=== PATIENT | female | born 1975 | race Caucasian/White ===

== ENCOUNTER → 2018-04-19 17:12 | Outpatient (CLI) | payer OTHER, SELFPAY | PROVIDERS: Family Provider Family Medicine; PCP Family Medicine; Visit Provider Family Medicine | DX: R50.9 Fever, unspecified (principal) | CPT/HCPCS: 36415; 87040 ==

== ENCOUNTER 2018-06-04 18:14 | Emergency (ER) | payer OTHER, SELFPAY ==
[2018-06-04 18:22] VITALS: BP 161/121; PULSE 126; RESP 20; TEMP 37.2; O2SAT 99
--- NOTE | 2018-06-04 18:24 | ED.FALL ---
HPI - Fall <Helga Moody PA-C - Last Filed: 06/04/18 21:36> General Chief Complaint: Head Injury Stated Complaint: CRACKED HEAD Time Seen by Provider: 06/04/18 18:22 Source: patient Mode of arrival: ambulatory Limitations: no limitations History of Present Illness HPI Narrative: this 43-year-old female was up on a step ladder, 4-5 feet, decorating when she slipped and fell backwards off of it. She states for she landed on her left gluteal area, and hit the back of her head on a plantar. She states that she did not lose consciousness, knew what had happened. She states that she was able to get up right away and then realized the back of her scalp was bleeding. She states that she also had some pain in her neck so came here for evaluation. She states most pain is in her left gluteal area. She states that she has been walking and moving normally including her neck. She denies any weakness or paresthesia in the extremities. She denies any difficulty urinating or groin numbness. Related Data Home Medications Medication Instructions Recorded Confirmed citalopram 40 mg PO QDAY #30 tab 03/21/16 05/12/18 venlafaxine ER 37.5 mg 37.5 mg PO DAILY 05/12/18 05/12/18 capsule,extended release 24 hr Previous Rx's Medication Instructions Recorded hydrocodone-acetaminophen [Reeders] 1 tab PO Q6HP PRN #10 tab 03/21/16 cyclobenzaprine 10 mg PO Q8H PRN #10 tab 06/04/18 hydrocodone-acetaminophen 2 tab PO Q6-8H PRN #10 tab 06/04/18 ibuprofen 800 mg PO Q8H PRN #20 tab 06/04/18 Allergies Allergy/AdvReac Type Severity Reaction Status Date / Time INTOLERANT TO STERIODS. AdvReac Unknown Uncoded 05/12/18 15:56 Review of Systems <Helga Moody PA-C - Last Filed: 06/04/18 21:36> Review of Systems All systems reviewed & are unremarkable except as noted in HPI and below Exam <Helga Moody PA-C - Last Filed: 06/04/18 21:36> Narrative Exam Narrative: GENERAL APPEARANCE: Patient sitting comfortably, in no distress. HEENT: PERRL, EOMI, normal TMs and oropharynx NECK: Supple LUNGS: Clear to auscultation bilaterally. HEART: Rate and rhythm regular without murmur, normal S1 and S2, no S3 or S4. NEUROLOGIC: Alert and oriented, normal speech, and coordination. MUSCULOSKELETAL: tender over the mid to upper C-spine . no point tenderness over the thoracolumbar spine or sacrum. No point tenderness over the left anterior or lateral hip. She is tender over the left posterior hip and mid gluteals. After C collar removal she has full AROM of the Csp. Tender with position changes but gait is normal. DERMATOLOGIC: scabbed 2.8 cm laceration left posterior mid scalp. None visible elsewhere. She has a tender hematoma L. inferior occiput. There is a tender hematoma in the left mid inferior buttock without any visible eccymoses or abrasion Initial Vital Signs Initial Vital Signs: Vital Signs Temperature 98.9 F 06/04/18 18:22 Pulse Rate 126 H 06/04/18 18:22 Respiratory Rate 20 06/04/18 18:22 Blood Pressure 161/121 H 06/04/18 18:22 Pulse Oximetry 99 06/04/18 18:22 <Filemon Vigil DO - Last Filed: 06/05/18 00:57> Initial Vital Signs Initial Vital Signs: Vital Signs Temperature 98.9 F 06/04/18 18:22 Pulse Rate 126 H 06/04/18 18:22 Respiratory Rate 20 06/04/18 18:22 Blood Pressure 161/121 H 06/04/18 18:22 Pulse Oximetry 99 06/04/18 18:22 Procedures <JOEL Sanchez Last Filed: 06/04/18 21:36> Laceration Repair Laceration 1: Site: scalp Size (cm): 2.8 Description: linear Depth: simple, single layer Pre-repair: wound explored Size (cm): other (closed with 4 ashanti) Course <JOEL Sanchez Last Filed: 06/04/18 21:36> Orders Ordered: ED Orders 06/04/18 18:38 CT cervical spine wo con Stat CT head/brain wo con Stat XR hip w pel if done LT 2V Stat Discontinued Medications Hydrocodone Bitart/Acetaminophen (Reeders 5/325) 1 tab PO NOW ONE Stop: 06/04/18 19:05 Hydrocodone Bitart/Acetaminophen (Vicodin Prepack) 1 bottle MISC SEEINSTR ONE Stop: 06/04/18 19:54 Last Admin: 06/04/18 20:13 Dose: 1 bottle Cyclobenzaprine HCl (Flexeril 10 Mg Prepack) 1 bottle MISC SEEINSTR ONE Stop: 06/04/18 19:54 Last Admin: 06/04/18 20:13 Dose: 1 bottle Ibuprofen (Advil) 800 mg PO NOW ONE Stop: 06/04/18 19:21 Last Admin: 06/04/18 19:24 Dose: 800 mg Vital Signs - 8 hr 06/04/18 18:22 06/04/18 20:25 Temperature 98.9 F Pulse Rate 126 H 110 H Respiratory Rate 20 18 Blood Pressure 161/121 H 166/111 H Pulse Oximetry 99 95 <Filemon Vigil DO - Last Filed: 06/05/18 00:57> Orders Ordered: ED Orders 06/04/18 18:38 CT cervical spine wo con Stat CT head/brain wo con Stat XR hip w pel if done LT 2V Stat Discontinued Medications Hydrocodone Bitart/Acetaminophen (Reeders 5/325) 1 tab PO NOW ONE Stop: 06/04/18 19:05 Hydrocodone Bitart/Acetaminophen (Vicodin Prepack) 1 bottle MISC SEEINSTR ONE Stop: 06/04/18 19:54 Last Admin: 06/04/18 20:13 Dose: 1 bottle Cyclobenzaprine HCl (Flexeril 10 Mg Prepack) 1 bottle MISC SEEINSTR ONE Stop: 06/04/18 19:54 Last Admin: 06/04/18 20:13 Dose: 1 bottle Ibuprofen (Advil) 800 mg PO NOW ONE Stop: 06/04/18 19:21 Last Admin: 06/04/18 19:24 Dose: 800 mg Vital Signs - 8 hr 06/04/18 18:22 06/04/18 20:25 Temperature 98.9 F Pulse Rate 126 H 110 H Respiratory Rate 20 18 Blood Pressure 161/121 H 166/111 H Pulse Oximetry 99 95 MDM - Fall <Helga Moody PA-C - Last Filed: 06/04/18 21:36> Imaging Data CT scan - head: Radiologist's impression: [address] [address] [address] Scan Report Signed Patient: Tootie Elmore [facility]#: [id number] : 1975Acct:[id number] Age/Sex: 43 / FDate of Service: 06/04/18 Loc: ED Accession Number: [id number] Procedure: CT head/brain wo con Ordering Provider: Helga Moody P.A-C PROCEDURE: CT HEAD/BRAIN WO CON INDICATIONS: fall, head contusion TECHNIQUE: Noncontrast 4.5 mm thick angled axial sections acquired from the foramen magnum to the vertex, with coronal and sagittal reformats. For radiation dose reduction, the following was used: automated exposure control, adjustment of mA and/or kV according to patient size. COMPARISON: None. FINDINGS: Image quality: Excellent. CSF spaces: Basal cisterns are patent. No extra-axial fluid collections. Ventricles are normal in size and shape. Brain: No midline shift. No intracranial masses or hemorrhage. Ospina-white matter interface is normal. Skull and face: Calvarium and visualized facial bones are intact, without suspicious lesions. 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 Sinuses: Visualized sinuses and mastoids are clear. IMPRESSION: No acute intracranial disease process. Dictated by: Dory Jerez MD, PhD on 06/04/2018 at 19:12 Approved by: Dory Jerez MD, PhD on 06/04/2018 at 19:14 hip: Radiologist's impression: [address] [address] XRay Report Signed Patient: Tootie Elmore [facility]#: [id number] : 1975Acct:[id number] Age/Sex: 43 / FDate of Service: 06/04/18 Loc: ED Accession Number: [id number] Procedure: XR hip w pel if done LT 2V Ordering Provider: Helga Moody P.A-C PROCEDURE: XR HIP W PEL IF DONE LT 2V INDICATIONS: fall, L posterior hip,gluteal pain TECHNIQUE: AP pelvis with lateral view(s) of the left hip(s). COMPARISON: None. FINDINGS: Bones: No fractures or dislocations. Pelvic ring appears intact. No suspicious bony lesions. Soft tissues: The visualized bowel gas pattern is normal. No suspicious soft tissue calcifications. IMPRESSION: No fracture. No osseous lesion. If there are persistent symptoms or clinical suspicion for pathology, then repeat radiographs or advanced imaging (CT, MRI or bone scan) should be considered for further evaluation. Dictated by: Dory Jerez MD, PhD on 06/04/2018 at 19:15 Approved by: Dory Jerez MD, PhD on 06/04/2018 at 19:16 cspine: Radiologist's impression: [address] [address] [address] Scan Report Signed Patient: Tootie Elmore [facility]#: [id number] : 1975Acct:[id number] Age/Sex: 43 / FDate of Service: 06/04/18 Loc: ED Accession Number: [id number] Procedure: CT cervical spine wo con Ordering Provider: Helga Moody P.A-C PROCEDURE: CT CERVICAL SPINE WO CON INDICATIONS: fall, mid to sup Csp pain TECHNIQUE: Noncontrast 3 mm thick sections acquired from the skull base to the T4 level. Sagittal and coronal reformats were then constructed. For radiation dose reduction, the following was used: automated exposure control, adjustment of mA and/or kV according to patient size. COMPARISON: None. FINDINGS: Image quality: Excellent. Bones: No fractures or dislocations. Visualized superior ribs are intact. C5-C6 and C6-C7 degenerative changes are noted. C3-C4, C4-C5, C5-C6 and C7-T1 facet arthropathy. 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 Soft tissues: Prevertebral soft tissues are normal in thickness. No paravertebral hematomas. No apical pneumothoraces. IMPRESSION: No fracture. No acute osseous lesion. If there are persistent symptoms or continued clinical suspicion for pathology, then MRI should be considered for further evaluation. Dictated by: Dory Jerez MD, PhD on 06/04/2018 at 19:16 Approved by: Dory Jerez MD, PhD on 06/04/2018 at 19:21 Discharge Plan Departure Patient Disposition: Home Clinical Impression: Contusion of scalp, Laceration of scalp, Hematoma Discharge Date/Time: 06/04/18 20:25 Interventions: ED Discharge Assessment Last Done: 06/04/18 20:25 Instructions: DI for Laceration Repair -- [place] Activity Restrictions/Additional Instructions: Please return as we talked about if you have acutely worsening symptoms such as severe headache, or new symptoms such as vision change or vomiting. You are going to have tight, sore muscles, and you have an under the skin bruise on your left buttock area as well as the one on your scalp. Please continue Ibuprofen 800mg every 8 hr to help with pain and inflammation, take with food. You can add the hydrocodone/ acetaminophen and cyclobenzaprine as needed for pain and muscle tightness since you have taken these in the past. Remember that they can make you sleepy, and not to drive. Call your PCP 1st thing on Wednesday to set up a follow-up, let them know that you were seen in the emergency room. The ashanti should be ready to come out by or Wednesday Prescriptions: New cyclobenzaprine 10 mg tablet 10 mg PO Q8H PRN (Reason: muscle spasm/tightness) Qty: 10 RF: 0 ibuprofen 800 mg tablet 800 mg PO Q8H PRN (Reason: pain) Qty: 20 RF: 0 hydrocodone-acetaminophen 5-325 mg tablet 2 tab PO Q6-8H PRN (Reason: acute pain/injury) Qty: 10 RF: 0 No Action citalopram 40 MG tablet 40 mg PO QDAY Qty: 30 RF: 0 hydrocodone-acetaminophen [Reeders] 5 MG/325 MG tablet 1 tab PO Q6HP PRNQty: 10 RF: 0 venlafaxine [Effexor XR] 37.5 mg capsule,extended release 24hr 37.5 mg PO DAILY RF: 0 Referrals: Avni Call MD [Primary Care Provider] - <Filemon Vigil DO - Last Filed: 06/05/18 00:57> [facility] ED Attending Todd Attestation: I was immediately available in the department for consultation. Documentation has been reviewed. I agree with assessment and plan.
--- NOTE | 2018-06-04 18:38 | DI.CT.S_ITS ---
PROCEDURE: CT CERVICAL SPINE WO CON INDICATIONS: fall, mid to sup Csp pain TECHNIQUE: Noncontrast 3 mm thick sections acquired from the skull base to the T4 level. Sagittal and coronal reformats were then constructed. For radiation dose reduction, the following was used: automated exposure control, adjustment of mA and/or kV according to patient size. COMPARISON: None. FINDINGS: Image quality: Excellent. Bones: No fractures or dislocations. Visualized superior ribs are intact. C5-C6 and C6-C7 degenerative changes are noted. C3-C4, C4-C5, C5-C6 and C7-T1 facet arthropathy. 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 Soft tissues: Prevertebral soft tissues are normal in thickness. No paravertebral hematomas. No apical pneumothoraces. IMPRESSION: No fracture. No acute osseous lesion. If there are persistent symptoms or continued clinical suspicion for pathology, then MRI should be considered for further evaluation. Dictated by: Dory Jerez MD, PhD on 06/04/2018 at 19:16 Approved by: Dory Jerez MD, PhD on 06/04/2018 at 19:21
--- NOTE | 2018-06-04 18:38 | DI.CT.S_ITS ---
PROCEDURE: CT HEAD/BRAIN WO CON INDICATIONS: fall, head contusion TECHNIQUE: Noncontrast 4.5 mm thick angled axial sections acquired from the foramen magnum to the vertex, with coronal and sagittal reformats. For radiation dose reduction, the following was used: automated exposure control, adjustment of mA and/or kV according to patient size. COMPARISON: None. FINDINGS: Image quality: Excellent. CSF spaces: Basal cisterns are patent. No extra-axial fluid collections. Ventricles are normal in size and shape. Brain: No midline shift. No intracranial masses or hemorrhage. Ospina-white matter interface is normal. Skull and face: Calvarium and visualized facial bones are intact, without suspicious lesions. 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 Sinuses: Visualized sinuses and mastoids are clear. IMPRESSION: No acute intracranial disease process. Dictated by: Dory Jerez MD, PhD on 06/04/2018 at 19:12 Approved by: Dory Jerez MD, PhD on 06/04/2018 at 19:14
--- NOTE | 2018-06-04 18:38 | DI.RAD.S_ITS ---
PROCEDURE: XR HIP W PEL IF DONE LT 2V INDICATIONS: fall, L posterior hip,gluteal pain TECHNIQUE: AP pelvis with lateral view(s) of the left hip(s). COMPARISON: None. FINDINGS: Bones: No fractures or dislocations. Pelvic ring appears intact. No suspicious bony lesions. Soft tissues: The visualized bowel gas pattern is normal. No suspicious soft tissue calcifications. IMPRESSION: No fracture. No osseous lesion. If there are persistent symptoms or clinical suspicion for pathology, then repeat radiographs or advanced imaging (CT, MRI or bone scan) should be considered for further evaluation. Dictated by: Dory Jerez MD, PhD on 06/04/2018 at 19:15 Approved by: Dory Jerez MD, PhD on 06/04/2018 at 19:16
--- NOTE | 2018-06-04 18:54 | ED_ITS ---
HPI - Fall <Helga Moody PA-C - Last Filed: 06/04/18 21:36> General Chief Complaint: Head Injury Stated Complaint: CRACKED HEAD Time Seen by Provider: 06/04/18 18:22 Source: patient Mode of arrival: ambulatory Limitations: no limitations History of Present Illness HPI Narrative: this 43-year-old female was up on a step ladder, 4-5 feet, decorating when she slipped and fell backwards off of it. She states for she landed on her left gluteal area, and hit the back of her head on a plantar. She states that she did not lose consciousness, knew what had happened. She states that she was able to get up right away and then realized the back of her scalp was bleeding. She states that she also had some pain in her neck so came here for evaluation. She states most pain is in her left gluteal area. She states that she has been walking and moving normally including her neck. She denies any weakness or paresthesia in the extremities. She denies any difficulty urinating or groin numbness. Related Data Home Medications Medication Instructions Recorded Confirmed citalopram 40 mg PO QDAY #30 tab 03/21/16 05/12/18 venlafaxine ER 37.5 mg 37.5 mg PO DAILY 05/12/18 05/12/18 capsule,extended release 24 hr Previous Rx's Medication Instructions Recorded hydrocodone-acetaminophen [[place]] 1 tab PO Q6HP PRN #10 tab 03/21/16 cyclobenzaprine 10 mg PO Q8H PRN #10 tab 06/04/18 hydrocodone-acetaminophen 2 tab PO Q6-8H PRN #10 tab 06/04/18 ibuprofen 800 mg PO Q8H PRN #20 tab 06/04/18 Allergies Allergy/AdvReac Type Severity Reaction Status Date / Time INTOLERANT TO STERIODS. AdvReac Unknown Uncoded 05/12/18 15:56 Review of Systems <Helga Moody PA-C - Last Filed: 06/04/18 21:36> Review of Systems All systems reviewed & are unremarkable except as noted in HPI and below Exam <Helga Moody PA-C - Last Filed: 06/04/18 21:36> Narrative Exam Narrative: GENERAL APPEARANCE: Patient sitting comfortably, in no distress. HEENT: PERRL, EOMI, normal TMs and oropharynx NECK: Supple LUNGS: Clear to auscultation bilaterally. HEART: Rate and rhythm regular without murmur, normal S1 and S2, no S3 or S4. NEUROLOGIC: Alert and oriented, normal speech, and coordination. MUSCULOSKELETAL: tender over the mid to upper C-spine . no point tenderness over the thoracolumbar spine or sacrum. No point tenderness over the left anterior or lateral hip. She is tender over the left posterior hip and mid gluteals. After C collar removal she has full AROM of the Csp. Tender with position changes but gait is normal. DERMATOLOGIC: scabbed 2.8 cm laceration left posterior mid scalp. None visible elsewhere. She has a tender hematoma L. inferior occiput. There is a tender hematoma in the left mid inferior buttock without any visible eccymoses or abrasion Initial Vital Signs Initial Vital Signs: Vital Signs Temperature 98.9 F 06/04/18 18:22 Pulse Rate 126 H 06/04/18 18:22 Respiratory Rate 20 06/04/18 18:22 Blood Pressure 161/121 H 06/04/18 18:22 Pulse Oximetry 99 06/04/18 18:22 <Filemon Vigil DO - Last Filed: 06/05/18 00:57> Initial Vital Signs Initial Vital Signs: Vital Signs Temperature 98.9 F 06/04/18 18:22 Pulse Rate 126 H 06/04/18 18:22 Respiratory Rate 20 06/04/18 18:22 Blood Pressure 161/121 H 06/04/18 18:22 Pulse Oximetry 99 06/04/18 18:22 Procedures <JOEL Sanchez Last Filed: 06/04/18 21:36> Laceration Repair Laceration 1: Site: scalp Size (cm): 2.8 Description: linear Depth: simple, single layer Pre-repair: wound explored Size (cm): other (closed with 4 kenneth) Course <JOEL Sanchez Last Filed: 06/04/18 21:36> Orders Ordered: ED Orders 06/04/18 18:38 CT cervical spine wo con Stat CT head/brain wo con Stat XR hip w pel if done LT 2V Stat Discontinued Medications Hydrocodone Bitart/Acetaminophen ([place] 5/325) 1 tab PO NOW ONE Stop: 06/04/18 19:05 Hydrocodone Bitart/Acetaminophen (Vicodin Prepack) 1 bottle MISC SEEINSTR ONE Stop: 06/04/18 19:54 Last Admin: 06/04/18 20:13 Dose: 1 bottle Cyclobenzaprine HCl (Flexeril 10 Mg Prepack) 1 bottle MISC SEEINSTR ONE Stop: 06/04/18 19:54 Last Admin: 06/04/18 20:13 Dose: 1 bottle Ibuprofen (Advil) 800 mg PO NOW ONE Stop: 06/04/18 19:21 Last Admin: 06/04/18 19:24 Dose: 800 mg Vital Signs - 8 hr 06/04/18 18:22 06/04/18 20:25 Temperature 98.9 F Pulse Rate 126 H 110 H Respiratory Rate 20 18 Blood Pressure 161/121 H 166/111 H Pulse Oximetry 99 95 <Filemon Vigil DO - Last Filed: 06/05/18 00:57> Orders Ordered: ED Orders 06/04/18 18:38 CT cervical spine wo con Stat CT head/brain wo con Stat XR hip w pel if done LT 2V Stat Discontinued Medications Hydrocodone Bitart/Acetaminophen ([place] 5/325) 1 tab PO NOW ONE Stop: 06/04/18 19:05 Hydrocodone Bitart/Acetaminophen (Vicodin Prepack) 1 bottle MISC SEEINSTR ONE Stop: 06/04/18 19:54 Last Admin: 06/04/18 20:13 Dose: 1 bottle Cyclobenzaprine HCl (Flexeril 10 Mg Prepack) 1 bottle MISC SEEINSTR ONE Stop: 06/04/18 19:54 Last Admin: 06/04/18 20:13 Dose: 1 bottle Ibuprofen (Advil) 800 mg PO NOW ONE Stop: 06/04/18 19:21 Last Admin: 06/04/18 19:24 Dose: 800 mg Vital Signs - 8 hr 06/04/18 18:22 06/04/18 20:25 Temperature 98.9 F Pulse Rate 126 H 110 H Respiratory Rate 20 18 Blood Pressure 161/121 H 166/111 H Pulse Oximetry 99 95 MDM - Fall <Helga Moody PA-C - Last Filed: 06/04/18 21:36> Imaging Data CT scan - head: Radiologist's impression: [address] [address] [address] Scan Report Signed Patient: Tootie Elmore [facility]#: [id number] : 1975Acct:[id number] Age/Sex: 43 / FDate of Service: 06/04/18 Loc: ED Accession Number: [id number] Procedure: CT head/brain wo con Ordering Provider: Helga Moody P.A-C PROCEDURE: CT HEAD/BRAIN WO CON INDICATIONS: fall, head contusion TECHNIQUE: Noncontrast 4.5 mm thick angled axial sections acquired from the foramen magnum to the vertex, with coronal and sagittal reformats. For radiation dose reduction, the following was used: automated exposure control, adjustment of mA and/or kV according to patient size. COMPARISON: None. FINDINGS: Image quality: Excellent. CSF spaces: Basal cisterns are patent. No extra-axial fluid collections. Ventricles are normal in size and shape. Brain: No midline shift. No intracranial masses or hemorrhage. Ospina-white matter interface is normal. Skull and face: Calvarium and visualized facial bones are intact, without suspicious lesions. 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 Sinuses: Visualized sinuses and mastoids are clear. IMPRESSION: No acute intracranial disease process. Dictated by: Dory Jerez MD, PhD on 06/04/2018 at 19:12 Approved by: Dory Jerez MD, PhD on 06/04/2018 at 19:14 hip: Radiologist's impression: [address] [address] XRay Report Signed Patient: Tootie Elmore [facility]#: [id number] : 1975Acct:[id number] Age/Sex: 43 / FDate of Service: 06/04/18 Loc: ED Accession Number: [id number] Procedure: XR hip w pel if done LT 2V Ordering Provider: Helga Moody P.A-C PROCEDURE: XR HIP W PEL IF DONE LT 2V INDICATIONS: fall, L posterior hip,gluteal pain TECHNIQUE: AP pelvis with lateral view(s) of the left hip(s). COMPARISON: None. FINDINGS: Bones: No fractures or dislocations. Pelvic ring appears intact. No suspicious bony lesions. Soft tissues: The visualized bowel gas pattern is normal. No suspicious soft tissue calcifications. IMPRESSION: No fracture. No osseous lesion. If there are persistent symptoms or clinical suspicion for pathology, then repeat radiographs or advanced imaging (CT, MRI or bone scan) should be considered for further evaluation. Dictated by: Dory Jerez MD, PhD on 06/04/2018 at 19:15 Approved by: Dory Jerez MD, PhD on 06/04/2018 at 19:16 cspine: Radiologist's impression: [address] [address] [address] Scan Report Signed Patient: Tootie Elmore MMR#: [id number] : 1975Acct:[id number] Age/Sex: 43 / FDate of Service: 06/04/18 Loc: ED Accession Number: [id number] Procedure: CT cervical spine wo con Ordering Provider: Helga Moody P.A-C PROCEDURE: CT CERVICAL SPINE WO CON INDICATIONS: fall, mid to sup Csp pain TECHNIQUE: Noncontrast 3 mm thick sections acquired from the skull base to the T4 level. Sagittal and coronal reformats were then constructed. For radiation dose reduction, the following was used: automated exposure control, adjustment of mA and/or kV according to patient size. COMPARISON: None. FINDINGS: Image quality: Excellent. Bones: No fractures or dislocations. Visualized superior ribs are intact. C5- C6 and C6-C7 degenerative changes are noted. C3-C4, C4-C5, C5-C6 and C7-T1 facet arthropathy. 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 Soft tissues: Prevertebral soft tissues are normal in thickness. No paravertebral hematomas. No apical pneumothoraces. IMPRESSION: No fracture. No acute osseous lesion. If there are persistent symptoms or continued clinical suspicion for pathology, then MRI should be considered for further evaluation. Dictated by: Dory Jerez MD, PhD on 06/04/2018 at 19:16 Approved by: Dory Jerez MD, PhD on 06/04/2018 at 19:21 Discharge Plan Departure Patient Disposition: Home Clinical Impression: Contusion of scalp, Laceration of scalp, Hematoma Discharge Date/Time: 06/04/18 20:25 Interventions: ED Discharge Assessment Last Done: 06/04/18 20:25 Instructions: DI for Laceration Repair -- Kenneth Activity Restrictions/Additional Instructions: Please return as we talked about if you have acutely worsening symptoms such as severe headache, or new symptoms such as vision change or vomiting. You are going to have tight, sore muscles, and you have an under the skin bruise on your left buttock area as well as the one on your scalp. Please continue Ibuprofen 800mg every 8 hr to help with pain and inflammation, take with food. You can add the hydrocodone/ acetaminophen and cyclobenzaprine as needed for pain and muscle tightness since you have taken these in the past. Remember that they can make you sleepy, and not to drive. Call your PCP 1st thing on Wednesday to set up a follow-up, let them know that you were seen in the emergency room. The kenneth should be ready to come out by or Wednesday Prescriptions: New cyclobenzaprine 10 mg tablet 10 mg PO Q8H PRN (Reason: muscle spasm/tightness) Qty: 10 RF: 0 ibuprofen 800 mg tablet 800 mg PO Q8H PRN (Reason: pain) Qty: 20 RF: 0 hydrocodone-acetaminophen 5-325 mg tablet 2 tab PO Q6-8H PRN (Reason: acute pain/injury) Qty: 10 RF: 0 No Action citalopram 40 MG tablet 40 mg PO QDAY Qty: 30 RF: 0 hydrocodone-acetaminophen [[place]] 5 MG/325 MG tablet 1 tab PO Q6HP PRNQty: 10 RF: 0 venlafaxine [Effexor XR] 37.5 mg capsule,extended release 24hr 37.5 mg PO DAILY RF: 0 Referrals: Avni Call MD [Primary Care Provider] - <Filemon Vigil DO - Last Filed: 06/05/18 00:57> [facility] ED Attending Todd Attestation: I was immediately available in the department for consultation. Documentation has been reviewed. I agree with assessment and plan.
[2018-06-04] MEDS: IBUPROFEN 400 MG TABLET 800 MG PO (19:24)
--- NOTE | 2018-06-04 19:41 | PC.NURSE ---
TERESSA Partida in stapling pt's wound.
[2018-06-04] MEDS: CYCLOBENZAPRINE 10 MG PREPACK 1 BOTTLE MISC (20:13)
[2018-06-04] MEDS: HYDROCODONE/ACET 5/325 PREPACK 1 BOTTLE MISC (20:13)
[2018-06-04 20:25] VITALS: BP 166/111; PULSE 110; RESP 18; O2SAT 95
== END 2018-06-04 20:25 | disposition home or self-care (01) ==
PROVIDERS: Emergency Provider Internal Medicine; Family Provider Family Medicine; PCP Family Medicine
DX: S01.01XA Laceration without foreign body of scalp, initial encounter (principal); S30.0XXA Contusion of lower back and pelvis, initial encounter; W11.XXXA Fall on and from ladder, initial encounter
CPT/HCPCS: 70450; 72125; 73502; 99282; 99284

== ENCOUNTER 2018-07-01 10:39 | Day surgery (SDC) | payer OTHER, SELFPAY ==
[2018-06-30 08:15] VITALS: BMI 37.8
--- NOTE | 2018-07-01 | PATH_ITS ---
[facility] Accession Number: [id number] . 01 Material submitted: . ENDOMETRIAL CURETTINGS . 02 Diagnosis: Endometrial Curettings: Portions of shedding endometrium; negative for glandular hyperplasia, cytologic atypia, and malignancy. Endocervical tissue fragments; negative for glandular dysplasia and malignancy. MRV/07/04/2018 . 02 Electronically signed: . Meena Post MD, Pathologist NPI- [id number] . 01 Gross description: . Received in formalin, labeled with the patient's name and endometrial curettings are multiple red-brown irregularly shaped soft tissues aggregating to 2.0 x 0.5 x 0.3 cm. The tissues are filtered and are entirely submitted as A1. ([id number]) /MRV . 02 Pathologist provided ICD-10: N85.00 . 02 CPT . 374856 Performed at: 01 [facility] [address] [facility], [place], [place] [id number] MD Matt Ontiveros MD Phone: [phone] Performed at: 02 [facility] [address] [place], [place] [id number] MD Anu Trotter MD Phone: [phone]
[2018-07-01 10:57] VITALS: BP 149/98; PULSE 90; RESP 16; TEMP 36.6; O2SAT 97; BMI 36.1
[2018-07-01] MEDS: LACTATED RINGERS 1,000 ML 100 ML IV (11:12)
--- NOTE | 2018-07-01 12:04 | PM.PREOP ---
Pre-operative Note Interval Note Pre-op Check: Yes History & Physical exam performed today by Physician Changes: No
[2018-07-01 12:56] VITALS: BP 169/97; PULSE 90; RESP 16; TEMP 36.6; O2SAT 93
--- NOTE | 2018-07-01 12:59 | SUR.OPER ---
Lithotomy on padded OR bed, head on pillow, arms secured on padded arm boards at <90 degrees abduction. Legs secured in padded yellow fins stirrups.
[2018-07-01 13:00] VITALS: BP 146/94; PULSE 88; RESP 18; O2SAT 93
[2018-07-01 13:08] VITALS: BP 146/100; PULSE 80; RESP 14; O2SAT 95
[2018-07-01 13:10] VITALS: BP 146/97; PULSE 76; RESP 12; TEMP 36.7; O2SAT 95
[2018-07-01] MEDS: OXYCODONE/ACETAMINOPHEN 5/325 TABLET 1 TAB PO (13:12)
--- NOTE | 2018-07-01 15:41 | SUR.PHASEI ---
Awake quickly and quite interactionally engaging once awake. VSS and no shivering.
--- NOTE | 2018-07-02 17:15 | PM.HP.1 ---
History of Present Illness Date Patient Seen: 07/01/18 Time Patient Seen: 11:00 Chief complaint: d&c hysteroscopy novasure ablation [id number] Narrative: Patient is a 43-year-old 2 para 1012 who presents for a D&C hysteroscopy and NovaSure endometrial ablation secondary to menorrhagia and dysmenorrhea Patient History Medical History Menorrhagia (Acute) Depression with anxiety (Chronic) Reactive airways dysfunction syndrome (Chronic) Uterus, adenomyosis (Chronic) Surgical History History of elective (Resolved) History of third molar tooth extraction (Resolved) Family & Social History Social History: household members spouse,family Tobacco & Substance use: Smoking Status Current every day smoker alcohol intake frequency other Substance Use Type does not use Meds Home Medications Medication Instructions Recorded Confirmed Type citalopram 40 mg PO QDAY #30 tab 03/21/16 07/01/18 History meloxicam 15 mg PO DAILY 07/01/18 07/01/18 History oxycodone-acetaminophen [Percocet] 1 tab PO Q4-6H PRN #14 tab 07/01/18 Rx venlafaxine 75 mg PO DAILY 07/01/18 07/01/18 History Allergies Allergy/AdvReac Type Severity Reaction Status Date / Time INTOLERANT TO STERIODS. AdvReac Unknown rage Uncoded 07/01/18 10:56 Exam Vital Signs (past 8 hours): Oxygen Delivery Method Room Air Narrative Exam Narrative: HEENT: No thyromegaly, no anterior cervical or supraclavicular lymphadenopathy. Lungs:Clear to auscultation bilaterally, no wheezes. Cardiovascular: Regular rate and rhythm, no murmurs, rubs, or gallops. Abdomen: No scars. No hepatosplenomegaly. No masses palpable. External genitalia: Normal Vagina: Normal Cervix: Normal] Bimanual exam: 8 Week size uterus. Mobile. Rectal: [No masses]. Assessment & Plan (1) Premenopausal menorrhagia: Current visit: No Status: Acute (2) Severe dysmenorrhea: Current visit: No Status: Acute Plan: Assessment/Plan Narrative: Assessment: 43-year-old 2 para 1012 with menorrhagia and severe dysmenorrhea Plan: D&C hysteroscopy with NovaSure endometrial ablation The risks, benefits, and alternatives to the procedure were explained to the patient. The risks including bleeding, infection, and uterine perforation. She understands these risks and agrees to proceed. A full PAR-Q was held and consent form was signed
--- NOTE | 2018-07-02 17:19 | PM.GYNOP.1 ---
Operative Date/Time/Diagnoses Date of procedure: 07/01/18 Time of procedure: 11:45 Pre-op diagnosis: Menorrhagia Severe dysmenorrhea Post-op diagnosis: same Procedure: Procedures Operation Date: 07/01/18 11:30 Actual Procedures Side Surgeon p D&C Hysteroscopy w/Novasure Ablation Kayley Mason MD Indications: Menorrhagia Severe dysmenorrhea Surgeon: Kayley Mason Anesthesia Type: General (LMA) Operative Notes Findings: 8 week size anteverted uterus Thickened endometrial lining Length of the uterus 4.5 cm, with of the uterus 4.5 cm, power = 111 w, time = 76 sec Closure Type: not applicable Specimen(s): endometrial curettings Applied: catheter (In and out) Estimated blood loss (mL): 50 Blood products transfused: none Procedure in detail: After informed consent was obtained, the patient was taken to the operating room where she was placed in the dorsal supine position. After adequate LMA general anesthesia was achieved, she was placed in the dorsal lithotomy position, and prepped and draped in the usual sterile fashion. A bivalve speculum was placed into the vagina and the anterior lip of the cervix grasped with a single-tooth tenaculum. The cervical os was sequentially dilated until the hysteroscope could pass easily into the endometrial cavity. Initial inspection with the hysteroscope revealed both fallopian tube ostia, and a thickened endometrial lining throughout. The hysteroscope was removed from the uterus. Sharp curettage was performed yielding a large amount of endometrial curettings. The uterus was measured from the internal os to the fundus of the uterus and was 4.5 cm. This was set on the NovaSure catheter as well as a NovaSure generator. The NovaSure catheter passed easily into the endometrial cavity and was opened. The width of the uterus was 4.5 cm. This was set on the NovaSure generator. This indicated a power of 111 w. The cervix was capped, the cavity assessment was performed and passed, and the cycle was initiated. Cycle lasted 76 sec. At the completion of the cycle the cervix was on capped, the NovaSure catheter was closed, and the NovaSure catheter was removed from the uterus. The single-tooth tenaculum was removed from the anterior lip of the cervix. The bivalve speculum was removed from the vagina. Sponge, lap, and instrument counts were correct x2. The patient tolerated the procedure well, and was taken to PACU in stable condition. Complications: none Post-operative Condition: stable Disposition: PACU Plan for aftercare: Home after recovery
== END 2018-07-01 13:45 | disposition home or self-care (01) ==
PROVIDERS: Family Provider Family Medicine; PCP Family Medicine; Visit Provider Obstetrics & Gynecology
PROC: 0U5B8ZZ Destruction of Endometrium, Via Natural or Artificial Opening Endoscopic (ICD-10-PCS; CPT 58563; principal; 2018-07-01 11:30)
DX: N85.00 Endometrial hyperplasia, unspecified (principal); N94.6 Dysmenorrhea, unspecified; F17.210 Nicotine dependence, cigarettes, uncomplicated; F41.9 Anxiety disorder, unspecified; F33.41 Major depressive disorder, recurrent, in partial remission; J68.3 Other acute and subacute respiratory conditions due to chemicals, gases, fumes and vapors
CPT/HCPCS: 58563; J1885; J2250; J2405; J2704; J3010

== ENCOUNTER 2020-11-15 17:43 | Emergency (ER) | payer OTHER, SELFPAY ==
[2020-11-15] VITALS (16 sets, daily range): BP systolic 112–188; BP diastolic 73–109; PULSE 73–90; RESP 15–41; TEMP 35.9; O2SAT 96–99; BMI 35.5
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
[2020-11-15] MEDS: HYDROMORPHONE 1 MG INJ IM (18:20)
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
--- NOTE | 2020-11-15 19:27 | DI.RAD.S_ITS ---
PROCEDURE: XR SHOULDER LT MIN 2V INDICATIONS: post reduction TECHNIQUE: 3 views of the shoulder were acquired. COMPARISON: [facility], , XR SHOULDER LT MIN 2V, 11/15/2020, 18:13. FINDINGS: Bones: The patient is status post reduction of the previously seen anterior shoulder dislocation. A fracture of the greater tuberosity is reduced. There is mild widening of the acromioclavicular joint which was not appreciated on the prior x-ray. Soft tissues: No suspicious soft tissue calcifications. IMPRESSION: 1. Interval reduction of left anterior shoulder dislocation. 2. Fracture of the greater tuberosity appears well aligned. 3. Widening of the acromioclavicular joint. Dictated by: Kaleb Shen M.D. on 11/15/2020 at 20:12 Approved by: Kaleb Shen M.D. on 11/15/2020 at 20:14
[2020-11-15] MEDS: propofoL 200 MG/20 ML VIAL 100 MG IV (19:31)
[2020-11-15] MEDS: propofoL 200 MG/20 ML VIAL 20 MG IV (19:43)
[2020-11-15] MEDS: SODIUM CHLORIDE 0.9% 1,000 ML 125 ML IV (19:44)
[2020-11-15] MEDS: HYDROCODONE/ACET 5/325 TABLET 1 TAB PO (20:17)
[2020-11-15] MEDS: HYDROCODONE/ACET 5/325 PREPACK 1 BOTTLE MISC (20:44)
== END 2020-11-15 20:57 | disposition home or self-care (01) ==
PROVIDERS: Emergency Provider Emergency Medicine
DX: S43.005A Unspecified dislocation of left shoulder joint, initial encounter (principal); S42.252A Displaced fracture of greater tuberosity of left humerus, initial encounter for closed fracture; V29.9XXA Motorcycle rider (driver) (passenger) injured in unspecified traffic accident, initial encounter
CPT/HCPCS: 24505; 73030; 96360; 96372; 99152; 99284; 99285; J1170; J2704

== ENCOUNTER → 2023-01-07 12:12 | Outpatient (CLI) | payer BC, SELFPAY ==
--- NOTE | 2023-01-07 | DI.US.S_ITS ---
PROCEDURE: US PELVIC COMPLETE INDICATIONS: Amenorrhea, unspecified TECHNIQUE: Real-time scanning was performed of the pelvic organs, with image documentation. Additional endovaginal scanning was necessary due to incomplete visualization of the adnexal and endometrial structures by transabdominal scanning. COMPARISON: [facility], [place], PELVIC COMPLETE, 12/04/2015, 17:06. FINDINGS: Uterus: Uterus is anteverted and normal in size at 10.5 x 5.4 x 6.0 cm. The myometrium is heterogenous. The endometrium measures 6 mm combined thickness. Left anterior intramural fibroid measures 2.6 x 1.9 x 2.3 cm Ovaries: Right ovary is not visualized. Left ovary measures 4.3 by 2.4 x 4.7 cm consist with a calculated volume 25.7 cc. There is a simple left ovarian cysts measuring at 3.0 x 3.2 cm. Left ovary and is less than 12 follicles Other: No pathologic free abdominal or pelvic fluid. IMPRESSION: Myometrial fibroid. Nonvisualized right ovary. 3.2 cm left ovarian simple cyst Approved by: Micha Liu M.D. on 01/07/2023 at 19:08
== END ==
LOC: US 12:13
PROVIDERS: PCP Family Medicine; Referring Provider Family Medicine; Visit Provider Family Medicine
DX: D25.1 Intramural leiomyoma of uterus (principal); N91.2 Amenorrhea, unspecified; N83.292 Other ovarian cyst, left side
CPT/HCPCS: 76830; 76856

== ENCOUNTER → 2023-04-09 11:10 | Outpatient (CLI) | payer BC, SELFPAY ==
--- NOTE | 2023-04-09 | DI.CT.S_ITS ---
PROCEDURE: CT LUNG LOW DOSE SCREENING INDICATIONS: Nicotine dependence, TECHNIQUE: Noncontrast 2.0-2.5 mm thick sections acquired from the pulmonary apices to the posterior costophrenic angles. 7 mm thick axial MIP, and 5 mm coronal and sagittal reformats were then acquired. A low radiation dose technique was utilized. COMPARISON: None. FINDINGS: Image quality: Diagnostic, given the low radiation dose technique. Lungs and pleura: Moderate centrilobular emphysema. No suspicious nodules. Mediastinum: Heart size is normal. No pericardial effusion. No mediastinal adenopathy by size criteria. Thoracic aorta and central pulmonary arteries are normal in size. Esophagus is normal in caliber. No hiatal hernia. Bones and chest wall: No suspicious bony lesions. No vertebral body compression fractures. No axillary or supraclavicular adenopathy by size criteria. Thyroid gland is unremarkable. Moderate degenerative disc disease. Abdomen: Visualized upper abdomen solid organs and bowel loops appear normal in the absence of contrast. IMPRESSION: LUNG-RADS 1; continued annual follow-up if eligible. Dictated by: Nayan Otero M.D. on 04/09/2023 at 16:03 Approved by: Nayan Otero M.D. on 04/09/2023 at 16:05
== END ==
PROVIDERS: PCP Family Medicine; Referring Provider Family Medicine; Visit Provider Family Medicine
DX: Z12.2 Encounter for screening for malignant neoplasm of respiratory organs (principal); F17.200 Nicotine dependence, unspecified, uncomplicated; J43.2 Centrilobular emphysema
CPT/HCPCS: 71271

== ENCOUNTER 2023-06-25 08:44 | Day surgery (SDC) | payer BC, SELFPAY ==
--- NOTE | 2023-06-25 | PATH_ITS ---
[facility] Accession Number: [id number] No. of containers..02 Tissue . 01 Material submitted: . PART A: colon - ASCENDING COLON POLYP PART B: colon - CECAL MASS . 01 Diagnosis: A. Ascending Colon Polyp: Tubular adenoma. . B. Cecal Mass, Biopsies: Fragments of tubulovillous adenoma. No high-grade dysplasia or malignancy identified; please see comment. Additional step sections examined. MRV 07/08/2023 1449 Local . 01 Comment: B. The endoscopic impression of a cecal mass is noted. Sections from this biopsy are of multiple fragments of tubulovillous adenoma. No high-grade dysplasia or malignancy is identified in the sampled material. Correlation with clinical, endoscopic, and imaging findings to determine if this is inside sales account representative of the lesion, and assurance of complete removal of the lesion are recommended. . 01 Electronically signed: . Siva Beltrán MD, PhD, Pathologist NPI- [id number] . 01 Gross description: . Part A: ASCENDING COLON POLYP: Received in formalin is 1 fragment(s) of paula, soft tissue measuring 0.3 x 0.3 x 0.3 cm submitted entirely in 1 cassette(s) Part B: CECAL MASS: Received in formalin are multiple fragment(s) of paula, soft tissue measuring 0.1 x 0.1 x 0.1 cm to 1.0 x 0.8 x 0.6 cm submitted entirely in 1 cassette(s) /SAIRA 07/01/2023 1914 Local . 01 Pathologist provided ICD-10: D12.2, D12.0 . 01 CPT . 814513, [id number] Performed at: 01 [facility] [address] [place] [address], [place], [place] [id number] MD Matt Ontiveros MD Phone: [phone]
[2023-06-25 09:27] VITALS: BMI 40.3
[2023-06-25 09:38] VITALS: BP 107/70; PULSE 95; RESP 17; TEMP 37; O2SAT 96
[2023-06-25] MEDS: LACTATED RINGERS 1,000 ML 42 ML IV (09:41)
--- NOTE | 2023-06-25 10:55 | P.HP_ITS ---
History of Present Illness History of Present Illness Date Patient Seen: 06/25/23 Time Patient Seen: 10:55 Chief complaint: [facility] Narrative: First colonoscopy for colon cancer screening. No family history. [facility] Medical History (Updated 02/12/23 @ 16:00 by Emily Jones MD) Menorrhagia Depression with anxiety Uterus, adenomyosis Reactive airways dysfunction syndrome Surgical History Status post endometrial ablation (06/2018) S/P D&C (status post dilation and curettage) (07/01/18) History of third molar tooth extraction History of elective Social History household members: spouse and family Smoking Status: Current every day smoker Meds Home Medications and Allergies Home Medications Medication Instructions Recorded Confirmed Type albuterol sulfate 90 mcg/actuation 2 puff inhalation Q4-6H PRN 08/04/19 06/25/23 Rx aerosol inhaler (Ventolin HFA) shortness of breath or wheezing #8.5 grams inhalational spacing device #1 ea 08/04/19 02/12/23 Rx (BreatheRite MDI Spacer) fluoxetine 40 mg capsule 40 mg PO DAILY 02/12/23 06/25/23 History hydrochlorothiazide 25 mg tablet 25 mg PO BID 02/12/23 06/25/23 History lamotrigine 200 mg tablet 200 mg PO DAILY 02/12/23 06/25/23 History losartan 100 mg tablet 100 mg PO DAILY 02/12/23 06/25/23 History sodium,potassium,mag sulfates 17.5 See Rx Instructions PO .COMPLEX 04/14/23 Rx gram-3.13 gram-1.6 gram oral soln #354 mL (Suprep Bowel Prep Kit) trazodone 100 mg tablet 150 mg PO ONCE PM 06/25/23 06/25/23 History Allergies Allergy/AdvReac Type Severity Reaction Status Date / Time No Known Drug Allergies Allergy Verified 06/25/23 09:24 Review of Systems Review of Systems ROS: Yes All systems reviewed with the patient and are negative except as otherwise documented Exam Vital Signs (past 8 hours): - 06/25/23 09:38 Temperature 98.6 F Pulse Rate 95 H Respiratory Rate 17 Blood Pressure 107/70 Pulse Oximetry 96 Oxygen Delivery Method Room Air Oxygen Delivery Method Room Air Const General: cooperative and healthy appearing Nutritional Appearance: overweight HENMT Head: normocephalic and atraumatic Eyes General: appearance normal, both eyes and all related structures Sclera: sclerae normal Neck Neck: trachea midline Resp Effort & Inspection: normal respiratory effort and able to speak in complete sentences Cardio Rate: regular rate Rhythm: regular rhythm GI Palpation: soft and No tender Skin General: elasticity normal and turgor normal Neuro General: patient alert, patient awake and patient oriented x3 Cognition: normal cognition Psych Mental Status: mental status grossly normal Affect: normal affect Judgment: judgment good Assessment & Plan Assessment & Plan narrative: Colon cancer screening with colonoscopy and anesthesia Time Spent With Patient Time with patient: less than 30 minutes
--- NOTE | 2023-06-25 10:58 | PM.OP.COLON ---
Operative Date/Time/Diagnoses Date of procedure: 06/25/23 Time of procedure: 11:29 Pre-op diagnosis: Colon cancer screening Post-op diagnosis: same Procedure & Clinicians Study performed: Colonoscopy with hot snare biopsy, cold forceps polypectomy Same procedure as scheduled: Yes Indications: Colon cancer screening Surgeon: Bruna Holly Procedure Notes Procedure in detail: Preop diagnosis: Colon cancer screening Postop diagnosis: Same Operative procedure: Colonoscopy with cold forceps polypectomy and hot snare biopsy Anesthetic: Propofol Surgeon: Jeanine Holly MD Findings: Diverticulosis throughout the colon predominantly sigmoid. Cecal mass 12 mm by 15 mm. Small sessile polyp 3 mm in size in the ascending colon. Procedure: Patient placed in a lateral position. Rectal exam performed showing normal tone along with large hemorrhoidal tags. Scope was inserted into the rectum and advanced to ileocecal valve with minimal difficulty. Insufflation extraction scope and the above findings. Impression: Concerning cecal mass of which hot snare biopsies were performed, incomplete resection. Recommend right colectomy. Smaller sessile polyp in the ascending colon 3 mm in size, large hemorrhoidal tags, haas diverticulosis more concentrated in the sigmoid area. Plan: Repeat colonoscopy depending on pathology. We will send a Dr. Rodriguez for right colectomy Findings: divertiulosis, polyp(s) (Ascending colon polyp proximally 3 mm.) and possible cancer (Possible cancer flat in the cecum ) Specimen(s): other (Cecal) Complications: none Post-procedure Follow up: as needed Disposition: PACU
[2023-06-25 11:33] VITALS: BP 94/64; PULSE 69; RESP 16; TEMP 36.3; O2SAT 96
[2023-06-25 11:38] VITALS: BP 78/48; PULSE 69; RESP 12; O2SAT 95
[2023-06-25 11:43] VITALS: BP 93/60; PULSE 68; RESP 16; O2SAT 94
[2023-06-25 11:51] VITALS: BP 108/64; PULSE 68; RESP 14; TEMP 36.7; O2SAT 95
== END 2023-06-25 12:03 | disposition home or self-care (01) ==
PROVIDERS: PCP Family Medicine; Referring Provider Surgery; Visit Provider Surgery
PROC: 0DJD8ZZ Inspection of Lower Intestinal Tract, Via Natural or Artificial Opening Endoscopic (ICD-10-PCS; CPT 45378; principal; 2023-06-25 10:00)
DX: Z12.11 Encounter for screening for malignant neoplasm of colon (principal); K57.30 Diverticulosis of large intestine without perforation or abscess without bleeding; K64.4 Residual hemorrhoidal skin tags; D12.2 Benign neoplasm of ascending colon; D12.0 Benign neoplasm of cecum
CPT/HCPCS: 45385; 45380

== ENCOUNTER → 2023-07-12 10:00 | Outpatient (CLI) | payer BC, SELFPAY ==
[2023-07-12 11:21] LABS: Add Manual Diff / Slide Review NO; Basophils Absolute Auto 0 /uL (0-100); Basophils Percent Auto 0.4 % (0-2); Eosinophils Absolute Auto 100 /uL (0-450); Eosinophils Percent Auto 1.4 % (2-4); Hematocrit 38.1 % (36-46); Hemoglobin 13.2 g/dL (12.0-16.0); Lymphocytes Absolute Auto 1900 /uL (1100-4500); Lymphocytes Percent Auto 17.5 % (25-40); Mean Corpuscular HGB Conc 34.5 % (30-36); Mean Corpuscular Hemoglobin 31.2 PG (26-34); Mean Corpuscular Volume 90.4 fL (80-100); Monocytes Absolute Auto 500 /uL (0-900); Monocytes Percent Auto 4.8 % (3-14); Neutrophils Absolute Auto 8200 /uL (1500-7000); Neutrophils Percent Auto 75.9 % (50-75); Platelet Count 391 X10^3/uL (150-400); Red Blood Cell Count 4.22 X10^6/uL (4.0-5.2); Red Cell Distribution Width 14.2 % (11.6-14.8); White Blood Cell Count 10.8 X10^3/uL (4.5-11.0)
[2023-07-12 11:41] LABS: Alanine Aminotransferase 19 IU/L (<35); Albumin 4.3 g/dL (3.5-5.0); Albumin Globulin Ratio 1.4 (1.0-2.8); Alkaline Phosphatase 70 U/L (38-126); Aspartate Aminotransferase 20 IU/L (14-36); BUN Creatinine Ratio 14.5 (6-22); Bilirubin Total 0.5 mg/dL (0.2-1.3); Blood Urea Nitrogen 10 mg/dL (7-17); Calcium 9.9 mg/dL (8.4-10.2); Carbon Dioxide 28 mmol/L (22-32); Chloride 100 mmol/L (98-107); Estimated Glomerular Filt Rate > 60 mL/min (>60); Globulin 3.1 g/dL (1.7-4.1); Glucose 109 mg/dL (70-100); HEMOLYSIS < 15 (0-50); Potassium 4.4 mmol/L (3.4-5.1); Sodium 135 mmol/L (137-145); Total Protein 7.4 g/dL (6.3-8.2)
[2023-07-12 12:13] LABS: Carcinoembryonic Antigen 2.4 ng/mL (0.1-3.0)
== END ==
PROVIDERS: PCP Family Medicine; Referring Provider Surgery; Visit Provider Surgery
DX: K63.89 Other specified diseases of intestine (principal)
CPT/HCPCS: 36415; 80053; 82378; 85025

== ENCOUNTER → 2023-07-13 11:18 | Outpatient (CLI) | payer BC, SELFPAY ==
--- NOTE | 2023-07-13 12:17 | DI.CT.S_ITS ---
PROCEDURE: CT CHEST ABD PEL W CON INDICATIONS: cecal mass staging TECHNIQUE: After the administration of intravenous contrast, 5 mm thick sections acquired from the lung apices to the symphysis. 5 mm coronal and sagittal reformats were performed, with additional 7 mm MIP reformats through the lungs. For radiation dose reduction, the following was used: automated exposure control, adjustment of mA and/or kV according to patient size. COMPARISON: None. FINDINGS: Image quality: Excellent. CHEST: Lower Neck: No enlarged lymph nodes. Thyroid: No thyroid nodules which require sonographic follow up, per consensus guidelines. Axillae: No enlarged lymph nodes. Chest Wall: Right best cystic lesion measuring 1.4 cm. Lungs and Pleura: No pneumothorax or pleural effusions. Diffuse centrilobular ground-glass nodules. Moderate centrilobular emphysema. Heart: Heart size is normal. No pericardial effusion. Thoracic Vessels: The aorta and pulmonary arteries demonstrate normal size. Mediastinum and Rosamaria: No enlarged lymph nodes. Esophagus: No wall thickening. No hiatal hernia. ABDOMEN: Liver: No solid mass. Scattered subcentimeter hypoattenuating lesions, too small to characterize by CT but probably small cysts. Gallbladder: No radiopaque gallstones or wall thickening. Biliary ducts: No biliary dilation. Pancreas: No ductal dilation. Spleen: Size is within normal limits. Adrenal Glands: No adrenal nodules. Kidneys and Ureters: No hydronephrosis. No solid mass. No complex renal cystic lesion which requires follow up. Stomach and Bowel: Normal colonic caliber, without significant wall thickening. Colonic diverticulosis without evidence of diverticulitis. No measurable colonic mass. Peritoneum: No abnormal intraperitoneal fluid. No free air. Ventral Wall: No hernia. Abdominal Nodes: No retroperitoneal or mesenteric adenopathy by size criteria. Vessels: Aorta and inferior vena cava are normal in size. PELVIS: Pelvic Organs: 3.6 cm left mid segment uterine fibroid.. Bladder: Unremarkable. Pelvic Nodes: No enlarged lymph nodes. Miscellaneous: No inguinal hernias are seen. Bones: No aggressive osseous abnormality. IMPRESSION: No measurable colonic mass or mesenteric adenopathy. Diffuse centrilobular ground-glass nodules, most consistent respiratory bronchiolitis interstitial lung disease (RB-ILD) or hypersensitivity pneumonitis. Consider pulmonology referral. Dictated by: Nayan Otero M.D. on 07/13/2023 at 13:37 Approved by: Nayan Otero M.D. on 07/13/2023 at 13:55
== END ==
LOC: CT 11:18
PROVIDERS: PCP Family Medicine; Referring Provider Surgery; Visit Provider Surgery
DX: K63.89 Other specified diseases of intestine (principal); R91.8 Other nonspecific abnormal finding of lung field; J43.2 Centrilobular emphysema; K57.90 Diverticulosis of intestine, part unspecified, without perforation or abscess without bleeding; D25.9 Leiomyoma of uterus, unspecified
CPT/HCPCS: 71260; 74177; Q9967

== ENCOUNTER → 2023-07-30 08:25 | Outpatient (CLI) | payer BC, SELFPAY | LOC: RESP 08:25 | PROVIDERS: PCP Family Medicine; Referring Provider Family Medicine; Visit Provider Family Medicine | DX: R06.02 Shortness of breath (principal); F17.210 Nicotine dependence, cigarettes, uncomplicated; J98.8 Other specified respiratory disorders | CPT/HCPCS: 94060; 94726; 94729 ==

== ENCOUNTER → 2024-02-03 11:09 | Outpatient (CLI) | payer BC, SELFPAY ==
--- NOTE | 2024-02-03 11:11 | DI.RAD.S_ITS ---
PROCEDURE: XR CHEST 2V INDICATIONS: Interstitial pulmonary disease, unspecified TECHNIQUE: 2 views of the chest were acquired. COMPARISON: [facility], , CHEST 2 VIEW, 01/30/2016, 17:43. FINDINGS: Surgical changes and devices: None. Lungs and pleura: Lungs are clear. No pleural effusions or pneumothorax. Mediastinum: Mediastinal contours are normal. Heart size is normal. Bones and chest wall: No suspicious bony abnormalities. Soft tissues appear unremarkable. IMPRESSION: No acute cardiopulmonary abnormality is seen. Dictated by: Nayan Otero M.D. on 02/03/2024 at 14:26 Approved by: Nayan Otero M.D. on 02/03/2024 at 14:27
== END ==
PROVIDERS: PCP Family Medicine; Referring Provider Registered Nurse; Visit Provider Registered Nurse
DX: J84.9 Interstitial pulmonary disease, unspecified (principal); F17.200 Nicotine dependence, unspecified, uncomplicated; R05.2 Subacute cough; R06.09 Other forms of dyspnea
CPT/HCPCS: 71046

== ENCOUNTER → 2025-06-14 15:11 | Outpatient (CLI) | payer BC, SELFPAY ==
--- NOTE | 2025-06-14 15:17 | DI.RAD.S_ITS ---
PROCEDURE: ORTHO-XR FOOT 3V WB RIGHT INDICATIONS: right foot pain TECHNIQUE: 3 weight-bearing views acquired of the foot. COMPARISON: None. FINDINGS: Bones: There is mild pes planus with weight bearing. Lateral deviation at 3rd and 4th MTP joints are also seen. Old healed mid 5th metatarsal shaft fracture is seen. No acute fracture or dislocation. Mild 1st MTP joint osteoarthritis. No suspicious bony lesions. Soft tissues: No tibiotalar joint effusion. No suspicious soft tissue calcifications. IMPRESSION: Mild pes planus with weight-bearing. Lateral deviation at 3rd and 4th MTP joints. Old healed mid 5th metatarsal shaft fracture. No acute fracture or dislocation. Mild 1st MTP joint osteoarthritis. Dictated by: Kt Martinez M.D. on 06/15/2025 at 11:59 Approved by: Kt Martinez M.D. on 06/15/2025 at 12:02
== END ==
PROVIDERS: PCP Family Medicine; Referring Provider Podiatrist Foot & Ankle Surgery; Visit Provider Podiatrist Foot & Ankle Surgery
DX: M19.071 Primary osteoarthritis, right ankle and foot (principal); M21.41 Flat foot [pes planus] (acquired), right foot; M79.671 Pain in right foot
CPT/HCPCS: 73630